=== PATIENT | male | born 1975 | race Caucasian/White ===

== ENCOUNTER 2017-06-24 19:24 | Emergency (ER) | payer BC ==
[~2017-06-24] VITALS: Ht 175.3 cm; Wt 101.8 kg
[~2017-06-24 19:24] MED LIST: ADVIL200 MG OR; AMOXICILLIN500 MG PO; NYQUI1 OR
[2017-06-24] MEDS ORDERED: AMLODIPINE5 MG PO (19:45)
[2017-06-24] MEDS ORDERED: AMOXICILLIN500 MG PO (19:45)
[2017-06-24] MEDS ORDERED: ATORVASTATIN CA20 MG PO (19:46)
[2017-06-24 21:42] LABS: HEMOGLOBIN 11.8 g/dl (14.0-18.0); MEAN CELL VOLUME 85.6 fL CALC (80.0-100.0); MEAN CORPUSCULAR HGB 28.9 pG CALC (26.0-32.0); MEAN CORPUSCULAR HGB CONC 33.7 g/L CALC (32.0-36.0); NEUT# 3.21 thou/uL (1.82-7.42); RED BLOOD COUNT 4.09 mill/uL (4.70-6.10); RED CELL DISTRI WIDTH 12.6 % (11.5-15.5)
[2017-06-24 21:57] LABS: ALBUMIN 4.3 g/dL (3.2-5.0); ALKALINE PHOSPHATASE 64 u/l (38-126); ANION GAP 19 (6-22 (CALC)); BUN 20 mg/dL (9-20); BUN/CREATININE RATIO 30 (12-20 (CALC)); CALCIUM 9.6 mg/dL (8.4-10.2); CARBON DIOXIDE 25 mmol/l (22-30); CHLORIDE 103 mmol/l (95-108); CREATININE 0.7 mg/dL (0.7-1.3); ETHYL ALCOHOL 0 mg/dl (0-30); GFR > 60 ML/MIN (>=60 (CALC)); GFR FOR AFR.AMER. > 60 ML/MIN (>=60 (CALC)); GLUCOSE 115 mg/dL (75-110); POTASSIUM 3.6 mmol/l (3.5-5.1); SGOT/AST 35 u/l (17-59); SGPT/ALT 74 u/l (21-72); SODIUM 144 mmol/l (137-146); TOTAL PROTEIN 6.9 g/dL (6.3-8.2)
[2017-06-24 22:07] LABS: MYOGLOBIN 49 ng/mL (0 - 121)
[2017-06-24 22:52] LABS: URINE BILIRUBIN - DIPSTICK NEGATIVE (NEGATIVE); URINE BLOOD DIPSTICK NEGATIVE (NEGATIVE); URINE COLOR YELLOW; URINE GLUCOSE - DIPSTICK NEGATIVE (NEGATIVE); URINE KETONE NEGATIVE (NEGATIVE); URINE LEUK ESTERASE NEGATIVE (NEGATIVE); URINE NITRITE - DIPSTICK NEGATIVE (Negative); URINE PROTEIN - DIPSTICK NEGATIVE (NEG-TRACE); URINE SPECIFIC GRAVITY >=1.030; URINE UROBILINOGEN - DIPSTICK 0.2 E.U./dL (0.2)
[2017-06-24 22:54] LABS: URINE CLARITY CLEAR
[2017-06-24 22:57] LABS: BARBITURATES NEGATIVE (NEGATIVE); COCAINE NEGATIVE (NEGATIVE); METHADONE NEGATIVE (NEGATIVE); OXCYCODONE NEGATIVE (NEGATIVE); TETRAHYDROCANNABIONOL NEGATIVE (NEGATIVE); TRICYLIC ANTIDEPRESSANTS NEGATIVE (NEGATIVE)
[2017-06-25 00:50] VITALS: BP 145/70
== END 2017-06-25 00:50 | disposition home or self-care (01) | DRG 305 ==
LOC: ED 19:24
PROVIDERS: Emergency Medicine
DX: I10 Essential (primary) hypertension (principal); H53.8 Other visual disturbances; R00.0 Tachycardia, unspecified

== ENCOUNTER 2018-08-05 08:57 | Day surgery (SDC) | payer BC ==
[~2018-08-05] VITALS: Ht 172.7 cm; Wt 104.3 kg
[~2018-08-05 08:57] MED LIST changes: +AMLODIPINE5 MG PO; +ATORVASTATIN CA20 MG PO
[2018-08-05] MEDS ORDERED: ASPIRIN81 MG PO (09:16)
[2018-08-05] MEDS ORDERED: METOPROLOL100 M1 PO (09:17)
[2018-08-05] MEDS ORDERED: MOTRIN800 MG PO (11:51)
[2018-08-05 12:06] VITALS: BP 141/92
== END 2018-08-05 12:10 | disposition home or self-care (01) | DRG 572 ==
LOC: ORM 08:57
PROVIDERS: ATTEND Surgery
PROC: 0JB10ZZ Excision of Face Subcutaneous Tissue and Fascia, Open Approach (ICD-10-PCS; principal; 2018-08-05)
PROC: 0JBH0ZZ Excision of Left Lower Arm Subcutaneous Tissue and Fascia, Open Approach (ICD-10-PCS; 2018-08-05)
DX: D17.0 Benign lipomatous neoplasm of skin and subcutaneous tissue of head, face and neck (principal); D17.22 Benign lipomatous neoplasm of skin and subcutaneous tissue of left arm

== ENCOUNTER 2020-09-04 16:10 | Emergency (ER) | payer BC ==
[~2020-09-04] VITALS: Ht 172.7 cm; Wt 90.0 kg
[~2020-09-04 16:10] MED LIST changes: +ASPIRIN81 MG PO; +METOPROLOL100 M1 PO; +MOTRIN800 MG PO
[2020-09-04 17:09] LABS: IMMATURE GRANULOCYTES 0.1 % (0.0-5.0); MEAN CORPUSCULAR HGB 29.1 pG CALC (26.0-32.0); MEAN CORPUSCULAR HGB CONC 33.8 g/dL CAL (32.0-36.0); NEUT# 4.04 thou/uL (1.82-7.42); RED BLOOD COUNT 4.85 mill/uL (4.70-6.10); RED CELL DISTRI WIDTH 12.5 % (11.5-15.5)
[2020-09-04 17:10] LABS: HEMATOCRIT 41.7 % (39.0-50.0); HEMOGLOBIN 14.1 g/dl (14.0-18.0)
[2020-09-04 17:26] LABS: ALBUMIN 4.6 g/dL (3.2-5.0); ALKALINE PHOSPHATASE 55 u/l (38-126); ANION GAP 14 (6-22 (CALC)); BUN 19 mg/dL (9-20); BUN/CREATININE RATIO 23 (12-20 (CALC)); CARBON DIOXIDE 27 mmol/l (22-30); CHLORIDE 104 mmol/l (95-108); CREATININE 0.9 mg/dL (0.7-1.3); GFR > 60 ML/MIN (>=60 (CALC)); GFR FOR AFR.AMER. > 60 ML/MIN (>=60 (CALC)); POTASSIUM 3.8 mmol/l (3.5-5.1); SGOT/AST 23 u/l (17-59); SODIUM 141 mmol/l (137-146); TOTAL PROTEIN 7.4 g/dL (6.3-8.2)
[2020-09-04 17:27] LABS: BILIRUBIN, TOTAL 0.5 mg/dL (0.0-1.4)
[2020-09-04 17:55] LABS: TSH, 3RD GENERATION 1.24 uIU/mL (0.47 - 4.68)
[2020-09-04 20:00] LABS: URINE BILIRUBIN - DIPSTICK NEGATIVE (NEGATIVE); URINE BLOOD DIPSTICK NEGATIVE (NEGATIVE); URINE COLOR YELLOW; URINE GLUCOSE - DIPSTICK NEGATIVE (NEGATIVE); URINE KETONE NEGATIVE (NEGATIVE); URINE LEUK ESTERASE NEGATIVE (NEGATIVE); URINE NITRITE - DIPSTICK NEGATIVE (Negative); URINE PROTEIN - DIPSTICK NEGATIVE (NEG-TRACE); URINE SPECIFIC GRAVITY >=1.030; URINE UROBILINOGEN - DIPSTICK 0.2 E.U./dL (0.2)
[2020-09-04 20:43] VITALS: BP 132/76
== END 2020-09-04 20:43 | disposition home or self-care (01) | DRG 313 ==
LOC: ED 16:10
PROVIDERS: Family Medicine
DX: R07.9 Chest pain, unspecified (principal); R42 Dizziness and giddiness; I10 Essential (primary) hypertension; F95.2 Tourette's disorder; Z20.822 Contact with and (suspected) exposure to COVID-19